=== PATIENT | female | born 1940 | race Caucasian/White ===

== ENCOUNTER 2017-12-07 05:22 | Inpatient (IN) | payer MEDICARE, SELFPAY ==
[2017-12-07] VITALS (10 sets, daily range): BP systolic 44–117; BP diastolic 33–68; PULSE 83–91; RESP 16–20; TEMP 36.3–36.6; O2SAT 92–98; BMI 26.2
--- NOTE | 2017-12-07 | DI.ECHO.S_ITS ---
[place] [facility]---------+ [facility] +---------+ : : [address] : : : : [id number] : : : : Phone: [phone] Echocardiogram Report + + :Name: ALFREDO RG Study Date: 12/07/2017 Height: 62 in : :[facility] Weight: 143 lb : : Gender: Female BSA: 1.7 m2 : :: 1940 Age: 77 yrs BP: 102/68 mmHg: :Reason For Study: Congestive Heart Failure : : Performed By: Fabiola Guzman : :Referring: UNSPECIFIED : + + Interpretation Summary -The LV systolic function is significantly reduced. There is global hypokinesis with focal wall motion abnormality in the LAD territory. There is also hypokinesis in the inferior wall which indicates wither a wrap around LAD or RCA involvement. -The ejection fraction is estimated to be 30-35%. -Diastolic parameters suggest a restrictive filling pattern consistent with probable significantly elevated filling pressures. -There is moderate functional mitral regurgitation, with tethering of the MV leaflets secondary to increased filling pressures. -The interatrial septum bows toward right atrium consistent with elevated left atrial pressure. -The right ventricular systolic pressure is estimated to be at least 51 mmHg based on an estimated right atrial pressure of 8 mm Hg. -Comparison is made with the report of the echocardiogram of 03-03-10. -The drop in EF , WMA and elevated filling pressures are new. Procedure: A two-dimensional transthoracic echocardiogram with color flow and Doppler was performed. The study quality was technically good. Comparison is made with the echocardiogram of 03-03-10. The heart rate ranged between 89- 90 bpm during the study. Left Ventricle: The left ventricle is normal in size. There is normal left ventricular wall thickness. The ejection fraction is estimated to be 30-35%. There is mid anteroseptal wall severe hypokinesis. There is apical septal wall akinesis. There is apical akinesis. There is inferior wall severe hypokinesis. Diastolic parameters suggest a restrictive filling pattern consistent with probable significantly elevated filling pressures. Right Ventricle: The right ventricle is grossly normal size. Right ventricular systolic function is moderately reduced. Atria: The left atrium is severely dilated. Right atrial size is normal. Chiari network (normal variant) is noted. A patent foramen ovale is suspected. The interatrial septum bows toward right atrium consistent with elevated left atrial pressure. Mitral Valve: The mitral valve leaflets appear mildly thickened, but open well. There is moderate mitral regurgitation. Aortic Valve: The aortic valve is trileaflet. The aortic valve opens well. The aortic valve is moderately calcified. There is trace aortic regurgitation. Tricuspid Valve: The tricuspid valve leaflets are thin and pliable. There is moderate tricuspid regurgitation. The right ventricular systolic pressure is estimated to be at least 51 mmHg based on an estimated right atrial pressure of 8 mm Hg. Pulmonic Valve: The pulmonic valve is not well visualized. There is no pulmonic valvular regurgitation. Great Vessels: The aortic root is normal size. The dimensions of the ascending aorta are normal. The aortic arch is normal in size. The IVC is of normal diameter and collapses less than 50% with a sniff. This suggests a right atrial pressure of 8 mm Hg. Pericardium/ Pleura There is no pericardial effusion. There is a small right-sided pleural effusion. MMode/2D Measurements & Calculations LVIDd: 5.1 cm Ao root diam: 2.8 cm LVIDs: 4.1 cm Aortic Jxn: 2.4 cm FS: 21.0 % asc Aorta Diam: 3.1 cm EPSS: 1.9 cm Ao Arch Diam (Prox Trans): 2.6 cm IVSd: 1.00 cm LVPWd: 0.81 cm LV reis. diameter/BSA (cm/m^2): 3.1 LV sys. diameter/BSA (cm/m^2): 2.5 LA dimension: 4.6 cm RA long axis: 4.3 cm LA A2 area: 22.8 cm2 RA area: 12.7 cm2 LA A4 area: 21.9 cm2 RA vol: 32.2 ml LA length (vol): 5.1 cm RA : 19.4 ml/m2 LA vol: 82.2 ml IVC diam: 1.9 cm LA vol index: 49.6 ml/m2 RVDd major: 5.4 cm RVD1 (basal): 3.1 cm RVD2 (mid): 3.2 cm Doppler Measurements & Calculations Ao V2 max: 124.4 cm/sec MV E max eric: 106.7 cm/sec Ao V2 mean: 80.3 cm/sec MV A max eric: 83.8 cm/sec Ao max P.2 mmHg MV E/A: 1.3 Ao mean P.0 mmHg Med Peak E' Eric: 2.2 cm/sec Ao V2 VTI: 23.6 cm E/E' med: 48.3 Lat Peak E' Eric: 8.3 cm/sec E/E' lat: 12.8 E/e' average: 30.5 MV dec time: 0.14 sec MV P1/2t: 41.8 msec MR ERO: 0.23 cm2 TR max eric: 328.4 cm/sec MV V2 mean: 298.8 cm/sec TR max P.1 mmHg MV mean P.2 mmHg PA V2 max: 55.7 cm/sec MV V2 VTI: 130.9 cm PA V2 mean: 34.8 cm/sec PA mean P.58 mmHg PA Accel Time: 0.09 sec MV P1/2t max eric: 107.0 cm/sec MR flow rate: 94.4 cm3/sec MVA(P1/2t): 5.3 cm2 MR PISA radius: 0.63 cm Electronically signed by: Ayaan Robles M.D. on Reading Physician:12/07/2017 02:27 PM
--- NOTE | 2017-12-07 06:56 | PC.NURSE ---
Admitted at 0645 as AxOx3, very pleasany 77F. Currently on 3L NC saturating at 91%. Reports some increased SOB over the past few days and chest tightness that did not radiate anywhere and was worse with walking. There is +3 edema in b/l feet and +2 in b/l legs. She is a diabetic, states being allergic to Metformin (makes her sick) and Lisinopril (makes her cough, takes it sometimes at home). Skin intact with some scabs. Saurabh STOVALL reported they put in a worthy because she was so short of breath walking to bathroom, worthy is patent and clear yellow. Vitals stable.
--- NOTE | 2017-12-07 07:40 | PM.HP.1 ---
History of Present Illness Date Patient Seen: 12/07/17 Time Patient Seen: 07:00 Chief complaint: Acute Heart Failure, Elevated Troponin Narrative: The patient presents as a transfer from [facility] with diagnosis of chest pain. Ms. Fierro is a 77-year-old female with PMH significant for CAD, h/o TX (w/o reported intervention), TIA/CVA, carotid artery disease (previously was urged to be evaluated CEA), HTN, IDDM2T, and peripheral neuropathy. Patient reports prior abnormal stress test, approximately 4-5 years ago by report, which patient notes a 90% stenosis in 1 of her cardiac arteries. For the past 2-3 days patient reports an acute onset dyspnea with associated symptoms of a nonproductive cough, wheezing, chest tightness, and peripheral edema. Symptom onset was acute and progressively worsening in the past 3 days. She has been having some degree of edema over the past couple of weeks. Chest discomfort is characterized as tight across her chest without radiation to the back, extremities, neck or chest. Symptoms are worsened with exertion. No known history of pulmonary anomalies, asthma, or COPD. No prior known history of heart failure. It is worth mentioning that patient was placed on lisinopril 2 weeks ago. She has taken 2-3 doses of the medication after which she developed severe dry cough. At that time patient stopped taking the medication and her cough has resolved. Patient reports prior adverse reaction to lisinopril with similar presentation. She reports having coarseness and cessation of laryngeal spasm. Denies swelling of the tongue, lips, or face. Patient was recently placed on lisinopril due to elevated blood pressure. Patient tells me that she usually runs low and has not been checking her blood pressure and was not clear why the blood pressure is elevated. [facility] work-up reviewed CXR (2 view), remarkable for basilar predominant septal thickening. Pulmonary venous congestion. Streaking and indistinct lipase lower airspace disease. Trace bilateral pleural effusions, left greater than right. Mild enlargement of the cardiac silhouette. Moderate calcific atherosclerosis. Findings suggestive of mild to moderate CHF. Superimposed bibasilar infection difficult to exclude. IVC Sono: IVC 2.01 cm, IVC collapsed w/ inspiration 2.00 cm, high CVP WBC 9.4 HGB 10.6 PLT 275 NA 139 K 4.1 CL 106 CA 8.7 CO2 20 AG 13 GLU 163 BUN 25 sCR 1.0 GFR 54 BILI (total) 0.7 AST 131 ALT 173 ALK PHOS 164 LIPASE 13 ALB 3.3 TROP 0.1 BNP 1274 UA unremarkable for an infection, hematuria or proteinuria Received a DuoNeb treatment and 40 mg of IV Lasix. De Dios catheter was placed. Interventions noted as effective in relief of severity of acute dyspnea. Previously seen by Dr. Candy Cohen (cardiology, in [facility] [place]), which she has not followed up for in 4-5 years. Follows for preventive care w/ Roxanne Guzmán [employer]. Patient History Medical History Coronary artery disease (Chronic) Diabetes mellitus type 2, insulin dependent (Chronic) History of CVA (cerebrovascular accident) without residual deficits (Chronic) History of uric acid staghorn calculus (Chronic) Peripheral neuropathy (Chronic) H/O: hysterectomy (Resolved) Hx of nephrolithotomy with removal of calculi (Resolved) Meds Home Medications Medication Instructions Recorded Confirmed Type acetaminophen [Acetaminophen Extra 1,000 mg PO Q6H PRN 12/07/17 12/07/17 History Strength] cyclobenzaprine 10 mg PO TID PRN 12/07/17 12/07/17 History gabapentin 600 mg PO QPM 12/07/17 12/07/17 History insulin glargine U-300 conc 44 unit SUBCUT DAILY 12/07/17 12/07/17 History [Toujeo SoloStar U-300 Insulin] metoprolol tartrate 25 mg PO BID 12/07/17 12/07/17 History Allergies Allergy/AdvReac Type Severity Reaction Status Date / Time lisinopril Allergy Severe cough Verified 12/07/17 08:03 metformin Allergy Unknown Verified 12/07/17 08:03 Review of Systems Review of Systems All systems reviewed & are unremarkable except as noted in HPI and below Exam Vital Signs (past 8 hours): - 12/07/17 06:40 Temperature 97.6 F Pulse Rate 89 Respiratory Rate 20 Blood Pressure 102/68 Pulse Oximetry 98 Narrative Exam Narrative: General: NAD Head: NC, AT EENT: gaze conjugate, sclera anicteric external ears intact, no drainage, adequate hearing acuity external nose intact, no drainage or epistaxis oropharynx w/o exudated; no angioedema of lips, tongue, or face Neck: No JVD, no lymphadenopathy Chest: Symmetric chest rise, no palpable tenderness Resp: unlabored respiratory effort, no dyspnea / tachypnea, on 2L O2 Breath sounds Cardio: S1S2 GI: Rounded / central obesity, NT, ND, normoactive BS : De Dios catheter present, no CVA tenderness Skin: Pale overall appearance, no overt bruising, ulcers or lesions Extremities: BLE edema 2+, pitting Neuro: AOx3, no focal neurological deficits PsycH: Normal mood and affect, poor remote memory recall Objective Labs Result Diagrams: 12/07/17 07:40 12/07/17 07:40 Assessment & Plan Plan: Assessment/Plan Narrative: Congestive heart failure - echo - IV Lasix 40 mg BID - Trend e-lytes and renal fx; CBC / BMP / Mg - Daily weight, strict I/Os - FR 1.5L / per day Elevated Troponin Trop 0.1 per outside facility. EKG non-ischemic. H/O of CAD w/ prior TX. At time of evaluation chest pain-free. Denies additional s/s consistent w/ ACS. - Trend troponin CAD, w/ prior TX - reports taking ASA 325 gm BID, will need to verify this dose w/ prior records - resume ASA 325 mg QD - on BB , BP soft - will re-evaluate / consider resuing tomorrow - not on a statin, reports worsening neuropathic pain - Risk stratify: A1C and FLP - Request records from cornetist DM 2T, insulin dependent - AC/HS accu-checks - Resume home dose of insulin glargine ACEi induced adverse reaction At this time it is not clear if initiation of an MARLYN inhibitor has contributed to the respiratory distress / heart failure. CBC differential is unremarkable for eosinophilic and basophil abnormalities. Likely a sequela of underlying comorbidities/cardiac history - Place ACEi on patient's allergy list
--- NOTE | 2017-12-07 08:22 | P.HP_ITS ---
History of Present Illness Date Patient Seen: 12/07/17 Time Patient Seen: 07:00 Chief complaint: Acute Heart Failure, Elevated Troponin Narrative: The patient presents as a transfer from [facility] with diagnosis of chest pain. Ms. Fierro is a 77-year-old female with PMH significant for CAD, h/o OK (w/o reported intervention), TIA/CVA, carotid artery disease (previously was urged to be evaluated CEA), HTN, IDDM2T, and peripheral neuropathy. Patient reports prior abnormal stress test, approximately 4-5 years ago by report, which patient notes a 90% stenosis in 1 of her cardiac arteries. For the past 2-3 days patient reports an acute onset dyspnea with associated symptoms of a nonproductive cough, wheezing, chest tightness, and peripheral edema. Symptom onset was acute and progressively worsening in the past 3 days. She has been having some degree of edema over the past couple of weeks. Chest discomfort is characterized as tight across her chest without radiation to the back, extremities, neck or chest. Symptoms are worsened with exertion. No known history of pulmonary anomalies, asthma, or COPD. No prior known history of heart failure. It is worth mentioning that patient was placed on lisinopril 2 weeks ago. She has taken 2-3 doses of the medication after which she developed severe dry cough. At that time patient stopped taking the medication and her cough has resolved. Patient reports prior adverse reaction to lisinopril with similar presentation. She reports having coarseness and cessation of laryngeal spasm. Denies swelling of the tongue, lips, or face. Patient was recently placed on lisinopril due to elevated blood pressure. Patient tells me that she usually runs low and has not been checking her blood pressure and was not clear why the blood pressure is elevated. [facility] work-up reviewed CXR (2 view), remarkable for basilar predominant septal thickening. Pulmonary venous congestion. Streaking and indistinct lipase lower airspace disease. Trace bilateral pleural effusions, left greater than right. Mild enlargement of the cardiac silhouette. Moderate calcific atherosclerosis. Findings suggestive of mild to moderate CHF. Superimposed bibasilar infection difficult to exclude. IVC Sono: IVC 2.01 cm, IVC collapsed w/ inspiration 2.00 cm, high CVP WBC 9.4 HGB 10.6 PLT 275 NA 139 K 4.1 CL 106 CA 8.7 CO2 20 AG 13 GLU 163 BUN 25 sCR 1.0 GFR 54 BILI (total) 0.7 AST 131 ALT 173 ALK PHOS 164 LIPASE 13 ALB 3.3 TROP 0.1 BNP 1274 UA unremarkable for an infection, hematuria or proteinuria Received a DuoNeb treatment and 40 mg of IV Lasix. De Dios catheter was placed. Interventions noted as effective in relief of severity of acute dyspnea. Previously seen by Dr. Candy Cohen (cardiology, in [facility]), which she has not followed up for in 4-5 years. Follows for preventive care w/ Roxanne Guzmná [employer]ATE. Patient History Medical History Coronary artery disease (Chronic) Diabetes mellitus type 2, insulin dependent (Chronic) History of CVA (cerebrovascular accident) without residual deficits (Chronic) History of uric acid staghorn calculus (Chronic) Peripheral neuropathy (Chronic) H/O: hysterectomy (Resolved) Hx of nephrolithotomy with removal of calculi (Resolved) Meds Home Medications Medication Instructions Recorded Confirmed Type acetaminophen [Acetaminophen Extra 1,000 mg PO Q6H PRN 12/07/17 12/07/17 History Strength] cyclobenzaprine 10 mg PO TID PRN 12/07/17 12/07/17 History gabapentin 600 mg PO QPM 12/07/17 12/07/17 History insulin glargine U-300 conc 44 unit SUBCUT DAILY 12/07/17 12/07/17 History [Toujeo SoloStar U-300 Insulin] metoprolol tartrate 25 mg PO BID 12/07/17 12/07/17 History Allergies Allergy/AdvReac Type Severity Reaction Status Date / Time lisinopril Allergy Severe cough Verified 12/07/17 08:03 metformin Allergy Unknown Verified 12/07/17 08:03 Review of Systems Review of Systems All systems reviewed & are unremarkable except as noted in HPI and below Exam Vital Signs (past 8 hours): - 12/07/17 06:40 Temperature 97.6 F Pulse Rate 89 Respiratory Rate 20 Blood Pressure 102/68 Pulse Oximetry 98 Narrative Exam Narrative: General: NAD Head: NC, AT EENT: gaze conjugate, sclera anicteric external ears intact, no drainage, adequate hearing acuity external nose intact, no drainage or epistaxis oropharynx w/o exudated; no angioedema of lips, tongue, or face Neck: No JVD, no lymphadenopathy Chest: Symmetric chest rise, no palpable tenderness Resp: unlabored respiratory effort, no dyspnea / tachypnea, on 2L O2 Breath sounds Cardio: S1S2 GI: Rounded / central obesity, NT, ND, normoactive BS : De Dios catheter present, no CVA tenderness Skin: Pale overall appearance, no overt bruising, ulcers or lesions Extremities: BLE edema 2+, pitting Neuro: AOx3, no focal neurological deficits PsycH: Normal mood and affect, poor remote memory recall Objective Labs Result Diagrams: 12/07/17 07:40 12/07/17 07:40 Assessment & Plan Plan: Assessment/Plan Narrative: Congestive heart failure - echo - IV Lasix 40 mg BID - Trend e-lytes and renal fx; CBC / BMP / Mg - Daily weight, strict I/Os - FR 1.5L / per day Elevated Troponin Trop 0.1 per outside facility. EKG non-ischemic. H/O of CAD w/ prior OK. At time of evaluation chest pain-free. Denies additional s/s consistent w/ ACS. - Trend troponin CAD, w/ prior OK - reports taking ASA 325 gm BID, will need to verify this dose w/ prior records - resume ASA 325 mg QD - on BB , BP soft - will re-evaluate / consider resuing tomorrow - not on a statin, reports worsening neuropathic pain - Risk stratify: A1C and FLP - Request records from card stripper DM 2T, insulin dependent - AC/HS accu-checks - Resume home dose of insulin glargine ACEi induced adverse reaction At this time it is not clear if initiation of an MARLYN inhibitor has contributed to the respiratory distress / heart failure. CBC differential is unremarkable for eosinophilic and basophil abnormalities. Likely a sequela of underlying comorbidities/cardiac history - Place ACEi on patient's allergy list
--- NOTE | 2017-12-07 09:31 | CM.DANOTE ---
Addendum entered by Felicitas Yost LPN 12/07/17 14:21: Met as noted this morning with pt, 0830. Introduced self and role. Pt is a 77year old female who admitted to care of hospitalist team. She lives in [place], was taken to [facility] ER, it was determined, she states, that she needed a larger hospital and thus was sent to . She says she was told by [facility] that from she might have to go on to a larger hospital that offers cardiology care. Payer: Medicare and [employer]. PCP: Olimpia Ayers/per face sheet. Pt identifies one of her greatest concerns at this point is how she will get home at d/c. She says she has no one who can pick her up and she was told the hospital will figure that out. Pt is also concerned re the worthy catheter that has been placed, noting it is not comfortable/RN Shona is aware. Dr. London will be following pt today. P: agreed to check in again as POC unfolds and assist with d/c needs as these arise. Original Note: Discharge Planning/Care Management DCP: assessment: case received, EMR reviewed and met with pt. CM Discharge Assessment Start: 12/07/17 09:29 Freq: Status: Active Protocol: Document 12/07/17 09:30 ITV (Rec: 12/07/17 09:30 ITV [id number]) Discharge Planning Assessment History Provided By Patient Medical Record Prior Living Arrangements House Type of transporation used prior to Drives own vehicle admit Independent with ADL's Yes Is patient alert and oriented? Yes Whiteboard Updated in Patient Room with Yes name and ext. # of Outbound Supervisor Review Status In Process Next Review Type Continued Stay Review
[2017-12-07 09:40] LABS: Add Manual Diff / Slide Review NO; Basophils Percent Auto 0.7 % (0-2); Eosinophils Percent Auto 1.2 % (2-4); Hematocrit 32.7 % (36-46); Hemoglobin 10.7 g/dL (12.0-16.0); Lymphocytes Percent Auto 19.1 % (25-40); Mean Corpuscular HGB Conc 32.8 % (30-36); Mean Corpuscular Volume 85.3 fL (80-100); Monocytes Percent Auto 8.1 % (3-14); Neutrophils Absolute Auto 4800 /uL (3000-5900); Neutrophils Percent Auto 70.9 % (50-75); Platelet Count 293 X10^3/uL (150-400); Red Blood Cell Count 3.83 X10^6/uL (4.0-5.2); Red Cell Distribution Width 15.8 % (11.6-14.8); White Blood Cell Count 6.8 X10^3/uL (4.5-11.0)
[2017-12-07 09:52] LABS: Alanine Aminotransferase 194 IU/L (9-52); Albumin Globulin Ratio 1.3 (1.0-2.8); Alkaline Phosphatase 143 U/L (38-126); Aspartate Aminotransferase 119 IU/L (14-36); BUN Creatinine Ratio 26.7 (6-22); Bilirubin Total 0.6 mg/dL (0.2-1.3); Blood Urea Nitrogen 24 mg/dL (7-17); Calcium 9.3 mg/dL (8.4-10.2); Carbon Dioxide 27 mmol/L (22-32); Chloride 104 mmol/L (98-107); Estimated Glomerular Filt Rate > 60.0 mL/min (>60); Glucose 71 mg/dL (80-110); HEMOLYSIS < 15 (0-50); Magnesium 1.4 mg/dL (1.6-2.3); Potassium 3.5 mmol/L (3.4-5.1); Sodium 147 mmol/L (137-145)
[2017-12-07] MEDS: HEPARIN 5,000 UNIT/ML VIAL 5000 UNIT SUBCUT ×2 (11:19→21:03)
[2017-12-07] MEDS: FUROSEMIDE 40 MG/4 ML VIAL IV (11:19)
[2017-12-07] MEDS: ASPIRIN 325 MG TABLET PO (11:19)
[2017-12-07] MEDS: ACETAMINOPHEN 325 MG TABLET 975 MG PO (11:20)
[2017-12-07 15:26] LABS: Troponin I 0.104 ng/mL (0.01-0.034)
--- NOTE | 2017-12-07 15:33 | PC.NURSE ---
day shift noted that pt was supposed to be on tele. Called ICU and no tele boxes available to use, all in use. Pt received ECHO with evidence of decreased heart funtion. Pt reports chest pain and SOB with activity and when O2 was off to provide care, pt stated she felt chest pain again. Notified MD of issues, she is aware.
[2017-12-07] MEDS: GABAPENTIN 600 MG TABLET PO (17:13)
[2017-12-07] MEDS: CYCLOBENZAPRINE 10 MG TABLET PO (17:24)
[2017-12-07] MEDS: SODIUM CHLORIDE 0.9% 500 ML 1000 ML IV (19:23)
[2017-12-07 20:52] LABS: Troponin I 0.084 ng/mL (0.01-0.034)
[2017-12-08] VITALS (16 sets, daily range): BP systolic 89–154; BP diastolic 50–86; PULSE 88–109; RESP 17–20; TEMP 36.4–37.5; O2SAT 89–99
--- NOTE | 2017-12-08 00:08 | PC.NURSE ---
evening sh9ift note- patient frequently requested home medications. Hospitalist on duty notified of patients home medications and that patient reported feeling like Im withdrawling from not getting what i normally take.
[2017-12-08] MEDS: QUETIAPINE 25 MG TABLET 50 MG PO ×2 (00:12→20:26)
--- NOTE | 2017-12-08 03:10 | PC.NURSE ---
Addendum entered by Marla Connors R.N. 12/08/17 03:24: Spoke to Provider Danielle about 02 sats and she instructed to place patient on 2L NC. Now satting at 95% Original Note: Pt is AxOx3, VSS. Tolerating RA at 97% while awake. Currently at 89% while sleeping and maintaining. I am going to leave her on RA to see if she winds up desatting more during the night or if she can maintain this O2 status since she is normally not on any O2 at home. Edema in b/l feet is much improved since admission. Was about +3 and is now +1 non-pitting. Seroquel given for sleep. 1.5L fluid restriction. Legs elevated. De Dios patent and draining clear yellow urine. Cough that is non-productive. IS use encouraged and patient compliant with it.
--- NOTE | 2017-12-08 06:00 | DI.RAD.S_ITS ---
PROCEDURE: XR CHEST 1V INDICATIONS: Congestive heart failure, dyspnea TECHNIQUE: One view of the chest was acquired. COMPARISON: [facility], RG, XR CXR 2V, 12/07/2017, 3:08. FINDINGS: Surgical changes and devices: None. Diffuse scarring and interstitial changes. No definite new focal consolidation. Scattered atelectasis with increased hazy groundglass opacities since earlier same day. Cardiac silhouette is enlarged Chronic right rib fractures with callus formation as before IMPRESSION: Increased hazy diffuse groundglass opacities suggestive of early pulmonary edema although suboptimal evaluation given the background chronic interstitial change. Recommend continued radiographic followup. Please correlate clinically to exclude superimposed infection Enlarged cardiac silhouette suggesting cardiomegaly and raises the possibility of superimposed pericardial effusion. Please correlate clinically Dictated by: Arnulfo Palomares M.D. on 12/08/2017 at 9:20 Approved by: Arnulfo Palomares M.D. on 12/08/2017 at 9:24
[2017-12-08] MEDS: HEPARIN 5,000 UNIT/ML VIAL 5000 UNIT SUBCUT ×2 (09:18→20:26)
[2017-12-08] MEDS: GABAPENTIN 600 MG TABLET PO ×2 (09:18→20:26)
[2017-12-08] MEDS: ASPIRIN 325 MG TABLET PO (09:18)
[2017-12-08] MEDS: INSULIN GLARGINE 100 UNIT/ML 3ML PEN 44 UNIT SUBCUT (09:22)
--- NOTE | 2017-12-08 16:05 | PM.PN.1 ---
Subjective Date Patient Seen: 12/08/17 Interval history: Overall she feels her breathing has improved significantly. She is worried about the reduction in her ejection fraction She feels constipated and would like to have prune juice with meals Exam Vital Signs (past 8 hours): - 12/08/17 08:15 12/08/17 08:40 12/08/17 08:56 Temperature 98.4 F Pulse Rate 88 Respiratory Rate 18 Blood Pressure 111/61 Pulse Oximetry 97 97 94 12/08/17 12:00 12/08/17 16:00 Temperature 98.4 F 97.5 F L Pulse Rate 91 H Respiratory Rate 19 20 Blood Pressure 103/65 89/54 L Pulse Oximetry 92 91 Fraction of Inspired Oxygen 21 Oxygen Delivery Method Room Air Oxygen Flow Rate 0 Narrative Exam Narrative: Pleasant female in no acute distress LUngs: decreased breath sounds CV: RRR nl Sl S2 2/6 BRIDGET Abd: soft/ non tender/non distended Ext: 1+ edema Objective Labs Result Diagrams: 12/07/17 07:40 12/07/17 07:40 Labs: Laboratory Results - last 24 hr 12/07/17 20:19 Troponin I 0.084 H Assessment & Plan (1) Acute systolic heart failure: Problem details: As she has not tolerated MARLYN-I , will start hydralazine/isordil for afterload reduction. Will continue IV Lasix tonight, stop metoprolol and start low dose coreg. Once done with diuresis start isordil. Will discuss with Cardiology and patient may benefit for Coronary angio gram Current visit: Yes Status: Acute (2) Hypernatremia: Problem details: will continue to follow Current visit: Yes Status: Acute Quality VTE Deep Vein Thrombosis/Pulmonary Embolism Present on Admission: No
[2017-12-08] MEDS: CYCLOBENZAPRINE 10 MG TABLET PO (20:25)
[2017-12-08] MEDS: CARVEDILOL 3.125 MG TABLET PO (20:26)
[2017-12-08] MEDS: HYDRALAZINE 10 MG TABLET PO (22:21)
[2017-12-08] MEDS: ACETAMINOPHEN 325 MG TABLET 650 MG PO (23:54)
[2017-12-09] VITALS (12 sets, daily range): BP systolic 90–120; BP diastolic 49–72; PULSE 76–94; RESP 16–20; TEMP 36.3–37.1; O2SAT 92–97
[2017-12-09] MEDS: TEMAZEPAM 15 MG CAPSULE PO (02:07)
--- NOTE | 2017-12-09 02:10 | PC.NURSE ---
Pt. C/O insomnia, requested sleeping pill. KELLEN Santos notified, one time dose 15 mg. admin. Also given some chamomile tea & encouraged to get some sleep. Will cont. POC & monitor.
[2017-12-09 05:48] LABS: BUN Creatinine Ratio 46.3 (6-22); Blood Urea Nitrogen 37 mg/dL (7-17); Calcium 8.9 mg/dL (8.4-10.2); Carbon Dioxide 26 mmol/L (22-32); Chloride 108 mmol/L (98-107); Estimated Glomerular Filt Rate > 60.0 mL/min (>60); Glucose 107 mg/dL (80-110); HEMOLYSIS < 15 (0-50); Potassium 3.8 mmol/L (3.4-5.1); Sodium 142 mmol/L (137-145)
[2017-12-09] MEDS: ASPIRIN 325 MG TABLET PO (11:22)
[2017-12-09] MEDS: HEPARIN 5,000 UNIT/ML VIAL 5000 UNIT SUBCUT ×2 (11:23→20:37)
[2017-12-09] MEDS: FUROSEMIDE 20 MG/2 ML VIAL IV (11:27)
--- NOTE | 2017-12-09 11:31 | PM.PN.1 ---
Subjective Date Patient Seen: 12/09/17 Time Patient Seen: 11:32 Interval history: She says she is breathing much better. Her asset protection greeter is Dr. Cohen who she thinks she saw 3 years ago. The Lisinopril was started by her PCP - Kizzy Stearns. The Echo shows a 30-35% EF. Clearly the Lasix, Carvedilol, Hydralazine and Aldactone have been effective. She has no chest pain or edema. The Troponin reached 0.12 on 12/07. I don't see a BNP. Exam Vital Signs (past 8 hours): - 12/09/17 05:40 12/09/17 05:41 12/09/17 07:00 Temperature 97.3 F L Pulse Rate 80 80 Respiratory Rate 18 Blood Pressure 90/55 L 90/55 L Pulse Oximetry 96 95 12/09/17 08:00 Temperature 97.5 F L Pulse Rate 76 Respiratory Rate 18 Blood Pressure 105/49 L Pulse Oximetry 92 Fraction of Inspired Oxygen 21 Oxygen Delivery Method Room Air Oxygen Flow Rate 0 Const General: cooperative Nutritional Appearance: well nourished Orientation: alert and oriented x3 Resp Effort & Inspection: no respiratory distress Auscultation: clear to auscultation bilaterally and lung sounds not diminished Cardio Rate: regular rate Rhythm: regular rhythm Heart Sounds: no murmurs Skin General: no rashes or lesions noted Extrem General: No no pedal edema Objective Labs Result Diagrams: 12/07/17 07:40 12/09/17 05:22 Labs: Laboratory Results - last 24 hr 12/09/17 05:22 Sodium 142 Potassium 3.8 Chloride 108 H Carbon Dioxide 26 BUN 37 H Creatinine 0.80 Estimated GFR > 60.0 BUN/Creatinine Ratio 46.3 H Glucose 107 Calcium 8.9 Assessment & Plan Plan: Assessment/Plan Narrative: 1 - Acute CHF/Rule out ACS Her EKG is LBBB A repeat Troponin and BNP are ordered stat. Due to the weekend she will likely not be able to do a NM Lexiscan. As she has not tolerated MARLYN-I , she was started on Spironolactone/isordil for afterload reduction. Will continue IV Lasix and low dose coreg. Once done with diuresis start isordil. Will discuss with Cardiology and patient may need a Coronary angiogram. Slim left with Dr. Cohen, who is her asset protection greeter. 2 - Diabetes Mellitus 2 - Continue Lantus - following blood sugars 3 - Hypernatremia - Na of 147 on 12/07, now down to 142. Quality VTE Deep Vein Thrombosis/Pulmonary Embolism Present on Admission: No
[2017-12-09] MEDS: GABAPENTIN 600 MG TABLET PO ×2 (11:36→20:40)
[2017-12-09] MEDS: INSULIN GLARGINE 100 UNIT/ML 3ML PEN 44 UNIT SUBCUT (11:37)
--- NOTE | 2017-12-09 11:37 | P.PN_ITS ---
Subjective Date Patient Seen: 12/09/17 Time Patient Seen: 11:32 Interval history: She says she is breathing much better. Her railroad track mechanic is Dr. Cohen who she thinks she saw 3 years ago. The Lisinopril was started by her PCP - Kizzy Stearns. The Echo shows a 30-35% EF. Clearly the Lasix, Carvedilol, Hydralazine and Aldactone have been effective. She has no chest pain or edema. The Troponin reached 0.12 on 12/07. I don't see a BNP. Exam Vital Signs (past 8 hours): - 12/09/17 05:40 12/09/17 05:41 12/09/17 07:00 Temperature 97.3 F L Pulse Rate 80 80 Respiratory Rate 18 Blood Pressure 90/55 L 90/55 L Pulse Oximetry 96 95 12/09/17 08:00 Temperature 97.5 F L Pulse Rate 76 Respiratory Rate 18 Blood Pressure 105/49 L Pulse Oximetry 92 Fraction of Inspired Oxygen 21 Oxygen Delivery Method Room Air Oxygen Flow Rate 0 Const General: cooperative Nutritional Appearance: well nourished Orientation: alert and oriented x3 Resp Effort & Inspection: no respiratory distress Auscultation: clear to auscultation bilaterally and lung sounds not diminished Cardio Rate: regular rate Rhythm: regular rhythm Heart Sounds: no murmurs Skin General: no rashes or lesions noted Extrem General: No no pedal edema Objective Labs Result Diagrams: 12/07/17 07:40 12/09/17 05:22 Labs: Laboratory Results - last 24 hr 12/09/17 05:22 Sodium 142 Potassium 3.8 Chloride 108 H Carbon Dioxide 26 BUN 37 H Creatinine 0.80 Estimated GFR > 60.0 BUN/Creatinine Ratio 46.3 H Glucose 107 Calcium 8.9 Assessment & Plan Plan: Assessment/Plan Narrative: 1 - Acute CHF/Rule out ACS Her EKG is LBBB A repeat Troponin and BNP are ordered stat. Due to the weekend she will likely not be able to do a NM Lexiscan. As she has not tolerated MARLYN-I , she was started on Spironolactone/isordil for afterload reduction. Will continue IV Lasix and low dose coreg. Once done with diuresis start isordil. Will discuss with Cardiology and patient may need a Coronary angiogram. Slim left with Dr. Cohen, who is her railroad track mechanic. 2 - Diabetes Mellitus 2 - Continue Lantus - following blood sugars 3 - Hypernatremia - Na of 147 on 12/07, now down to 142. Quality VTE Deep Vein Thrombosis/Pulmonary Embolism Present on Admission: No
[2017-12-09] MEDS: CYCLOBENZAPRINE 10 MG TABLET PO (11:42)
[2017-12-09] MEDS: SODIUM CHLORIDE 0.9% FLUSH 10 ML IV ×2 (11:43→20:47)
[2017-12-09 12:41] LABS: Troponin I 0.062 ng/mL (0.01-0.034)
--- NOTE | 2017-12-09 14:55 | PM.DS.1 ---
History of Present Illness Date Patient Seen: 12/09/17 Time Patient Seen: 14:55 Chief complaint: Acute Heart Failure, Elevated Troponin Narrative: I reviewed her initially elevated troponins, now falling, thought to be secondary to congestive heart failure with a Dr. Cohen, who is her speech language specialist. We talked about her ejection fraction of 30-35%, her EKG with left bundle branch block in her general improvement with diuresis and the addition of spironolactone/hydralazine/carvedilol to her regimen. She will be going home on the additional medicines, with the goal of medical management until she sees her speech language specialist next week for further testing possible. This was explained to the patient. Social service working on getting her some transportation home. Her catheter will be removed and physical therapy will make sure that she is able to walk and transfer out of the car when she gets home. Per the initial hospital history and physical .The patient presents as a transfer from [facility] with diagnosis of chest pain. Ms. Fierro is a 77-year-old female with PMH significant for CAD, h/o ND (w/o reported intervention), TIA/CVA, carotid artery disease (previously was urged to be evaluated CEA), HTN, IDDM2T, and peripheral neuropathy. Patient reports prior abnormal stress test, approximately 4-5 years ago by report, which patient notes a 90% stenosis in 1 of her cardiac arteries. For the past 2-3 days patient reports an acute onset dyspnea with associated symptoms of a nonproductive cough, wheezing, chest tightness, and peripheral edema. Symptom onset was acute and progressively worsening in the past 3 days. She has been having some degree of edema over the past couple of weeks. Chest discomfort is characterized as tight across her chest without radiation to the back, extremities, neck or chest. Symptoms are worsened with exertion. No known history of pulmonary anomalies, asthma, or COPD. No prior known history of heart failure. It is worth mentioning that patient was placed on lisinopril 2 weeks ago. She has taken 2-3 doses of the medication after which she developed severe dry cough. At that time patient stopped taking the medication and her cough has resolved. Patient reports prior adverse reaction to lisinopril with similar presentation. She reports having coarseness and cessation of laryngeal spasm. Denies swelling of the tongue, lips, or face. Patient was recently placed on lisinopril due to elevated blood pressure. Patient tells me that she usually runs low and has not been checking her blood pressure and was not clear why the blood pressure is elevated. [facility] work-up reviewed CXR (2 view), remarkable for basilar predominant septal thickening. Pulmonary venous congestion. Streaking and indistinct lipase lower airspace disease. Trace bilateral pleural effusions, left greater than right. Mild enlargement of the cardiac silhouette. Moderate calcific atherosclerosis. Findings suggestive of mild to moderate CHF. Superimposed bibasilar infection difficult to exclude. IVC Sono: IVC 2.01 cm, IVC collapsed w/ inspiration 2.00 cm, high CVP WBC 9.4 HGB 10.6 PLT 275 NA 139 K 4.1 CL 106 CA 8.7 CO2 20 AG 13 GLU 163 BUN 25 sCR 1.0 GFR 54 BILI (total) 0.7 AST 131 ALT 173 ALK PHOS 164 LIPASE 13 ALB 3.3 TROP 0.1 BNP 1274 UA unremarkable for an infection, hematuria or proteinuria Received a DuoNeb treatment and 40 mg of IV Lasix. De Dios catheter was placed. Interventions noted as effective in relief of severity of acute dyspnea. Previously seen by Dr. Candy Cohen (cardiology, in [facility]), which she has not followed up for in 4-5 years. Follows for preventive care w/ Roxanne Guzmán TEST ADMINISTRATOR. Discharge Providers Date of admission: 12/07/17 05:22 Primary care physician: KELLEN Nguyen Consults: 12/09/17 14:52 Consult to Physical Therapy Evaluate & Treat Comment: For discharge safety Physician Instructions: Evaluate and Treat Discharge provider: Neil Robbins MD Discharge Date: 12/09/17 Summary Discharge Diagnosis: Congestive heart failure Elevated troponin of demand ischemia without myocardial infarction Coronary artery disease Diabetes mellitus type 2 History of CVA without residual deficits History of staghorn uric acid calculus Peripheral neuropathy Hospital Course: She came in quite dyspneic, with chest x-ray evidence of CHF and responded to IV Lasix. She had previously been intolerant of angiotensin-converting enzyme inhibitors with a persisting cough. She was changed from metoprolol to carvedilol, spironolactone was added, hydralazine was added. Echocardiogram showed 30-35% ejection fraction with most recent echo being in 2010 with normal ejection fraction. Her EKG showed left bundle branch block. She had no chest pain while here, her troponins were initially elevated at 0.12 and then back down to 0.62 today along with a BNP of 784. Status at Discharge Functional status at discharge: independent ambulation Overall status at discharge: patient is progressing back to baseline Time Spent with Patient Greater than 30 minutes Exam Vital Signs (past 8 hours): - 12/09/17 07:00 12/09/17 08:00 12/09/17 11:30 Temperature 97.5 F L 97.9 F Pulse Rate 76 87 Respiratory Rate 18 16 Blood Pressure 105/49 L 111/69 Pulse Oximetry 95 92 97 12/09/17 13:43 Temperature Pulse Rate 89 Respiratory Rate Blood Pressure 101/59 L Pulse Oximetry Fraction of Inspired Oxygen 21 Oxygen Delivery Method Room Air Oxygen Flow Rate 0 Narrative Exam Narrative: I saw her several times today. Her lungs are clear to auscultation bilaterally. Her heart is regular rate and rhythm without murmur. She has no ankle edema. Objective Labs Result Diagrams: 12/07/17 07:40 12/09/17 05:22 Labs: Laboratory Results - last 24 hr 12/09/17 12/09/17 12/09/17 05:22 12:04 12:04 Sodium 142 Potassium 3.8 Chloride 108 H Carbon Dioxide 26 BUN 37 H Creatinine 0.80 Estimated GFR > 60.0 BUN/Creatinine Ratio 46.3 H Glucose 107 Calcium 8.9 Troponin I 0.062 H B-Natriuretic Peptide 784.0 H Discharge Plan Discharge Plan Patient Disposition: Home Discharge comment: After discussion with cardiology she is cleared for discharge home on medical treatment until she sees Dr. Cohen next week and has further testing for the CHF/Elevated Troponin. Discharge Med Rec/Prescriptions Prescriptions: New hydralazine 10 mg Tablet 10 mg PO Q8HR Qty: 90 RF: 0 aspirin 325 mg Tablet 325 mg PO DAILY Qty: 30 RF: 0 spironolactone 25 mg Tablet 25 mg PO DAILY Qty: 30 RF: 0 carvedilol [Coreg] 3.125 mg Tablet 3.125 mg PO BID Qty: 60 RF: 0 furosemide [Lasix] 40 mg tablet 40 mg PO DAILY Qty: 30 RF: 0 Continue gabapentin 800 mg Tablet 600 mg PO QPM RF: 0 cyclobenzaprine 10 mg Tablet 10 mg PO TID PRN (Reason: Spasms) RF: 0 acetaminophen [Acetaminophen Extra Strength] 500 mg Tablet 1,000 mg PO Q6H PRN (Reason: Pain (Scale Score 1-3)) RF: 0 insulin glargine U-300 conc [Toujeo SoloStar U-300 Insulin] 300 unit/mL (1.5 mL) Insulin Pen 44 unit SUBCUT DAILY RF: 0 Discontinued metoprolol tartrate 25 mg Tablet 25 mg PO BID RF: 0 Follow up/Referrals: Candy Cohen MD [Non-Staff] - 3-5 Days (BAILEE next week. ) Roxanne Guzmán ARNP [Primary Care Provider] - None (Follow up in 1-2 weeks. ) Provider Discharge Instructions Diet: Low-cholesterol Activity: Rest at home until cardiology sees her. Skin/Wound/Dressing Care Report to your healthcare provider any signs of infection, such as:: increased pain Discharge Data Primary Care Provider: Roxanne Guzmán Attending Provider: Michael Santos Admit Date/Time: 12/07/17 05:22 Quality VTE Deep Vein Thrombosis/Pulmonary Embolism Present on Admission: No
--- NOTE | 2017-12-09 15:04 | P.DS_ITS ---
History of Present Illness Date Patient Seen: 12/09/17 Time Patient Seen: 14:55 Chief complaint: Acute Heart Failure, Elevated Troponin Narrative: I reviewed her initially elevated troponins, now falling, thought to be secondary to congestive heart failure with a Dr. Cohen, who is her public housing manager. We talked about her ejection fraction of 30-35%, her EKG with left bundle branch block in her general improvement with diuresis and the addition of spironolactone/hydralazine/carvedilol to her regimen. She will be going home on the additional medicines, with the goal of medical management until she sees her public housing manager next week for further testing possible. This was explained to the patient. Social service working on getting her some transportation home. Her catheter will be removed and physical therapy will make sure that she is able to walk and transfer out of the car when she gets home. Per the initial hospital history and physical .The patient presents as a transfer from [facility] with diagnosis of chest pain. Ms. Fierro is a 77-year-old female with PMH significant for CAD, h/o [place] (w/o reported intervention), TIA/CVA, carotid artery disease (previously was urged to be evaluated CEA), HTN, IDDM2T, and peripheral neuropathy. Patient reports prior abnormal stress test, approximately 4-5 years ago by report, which patient notes a 90% stenosis in 1 of her cardiac arteries. For the past 2-3 days patient reports an acute onset dyspnea with associated symptoms of a nonproductive cough, wheezing, chest tightness, and peripheral edema. Symptom onset was acute and progressively worsening in the past 3 days. She has been having some degree of edema over the past couple of weeks. Chest discomfort is characterized as tight across her chest without radiation to the back, extremities, neck or chest. Symptoms are worsened with exertion. No known history of pulmonary anomalies, asthma, or COPD. No prior known history of heart failure. It is worth mentioning that patient was placed on lisinopril 2 weeks ago. She has taken 2-3 doses of the medication after which she developed severe dry cough. At that time patient stopped taking the medication and her cough has resolved. Patient reports prior adverse reaction to lisinopril with similar presentation. She reports having coarseness and cessation of laryngeal spasm. Denies swelling of the tongue, lips, or face. Patient was recently placed on lisinopril due to elevated blood pressure. Patient tells me that she usually runs low and has not been checking her blood pressure and was not clear why the blood pressure is elevated. [facility] work-up reviewed CXR (2 view), remarkable for basilar predominant septal thickening. Pulmonary venous congestion. Streaking and indistinct lipase lower airspace disease. Trace bilateral pleural effusions, left greater than right. Mild enlargement of the cardiac silhouette. Moderate calcific atherosclerosis. Findings suggestive of mild to moderate CHF. Superimposed bibasilar infection difficult to exclude. IVC Sono: IVC 2.01 cm, IVC collapsed w/ inspiration 2.00 cm, high CVP WBC 9.4 HGB 10.6 PLT 275 NA 139 K 4.1 CL 106 CA 8.7 CO2 20 AG 13 GLU 163 BUN 25 sCR 1.0 GFR 54 BILI (total) 0.7 AST 131 ALT 173 ALK PHOS 164 LIPASE 13 ALB 3.3 TROP 0.1 BNP 1274 UA unremarkable for an infection, hematuria or proteinuria Received a DuoNeb treatment and 40 mg of IV Lasix. De Dios catheter was placed. Interventions noted as effective in relief of severity of acute dyspnea. Previously seen by Dr. Candy Cohen (cardiology, in [facility]), which she has not followed up for in 4-5 years. Follows for preventive care w/ Roxanne Guzmán STREET PHOTOGRAPHER. Discharge Providers Date of admission: 12/07/17 05:22 Primary care physician: KELLEN Nguyen Consults: 12/09/17 14:52 Consult to Physical Therapy Evaluate & Treat Comment: For discharge safety Physician Instructions: Evaluate and Treat Discharge provider: Neil Robbins MD Discharge Date: 12/09/17 Summary Discharge Diagnosis: Congestive heart failure Elevated troponin of demand ischemia without myocardial infarction Coronary artery disease Diabetes mellitus type 2 History of CVA without residual deficits History of staghorn uric acid calculus Peripheral neuropathy Hospital Course: She came in quite dyspneic, with chest x-ray evidence of CHF and responded to IV Lasix. She had previously been intolerant of angiotensin- converting enzyme inhibitors with a persisting cough. She was changed from metoprolol to carvedilol, spironolactone was added, hydralazine was added. Echocardiogram showed 30-35% ejection fraction with most recent echo being in 2010 with normal ejection fraction. Her EKG showed left bundle branch block. She had no chest pain while here, her troponins were initially elevated at 0.12 and then back down to 0.62 today along with a BNP of 784. Status at Discharge Functional status at discharge: independent ambulation Overall status at discharge: patient is progressing back to baseline Time Spent with Patient Greater than 30 minutes Exam Vital Signs (past 8 hours): - 12/09/17 07:00 12/09/17 08:00 12/09/17 11:30 Temperature 97.5 F L 97.9 F Pulse Rate 76 87 Respiratory Rate 18 16 Blood Pressure 105/49 L 111/69 Pulse Oximetry 95 92 97 12/09/17 13:43 Temperature Pulse Rate 89 Respiratory Rate Blood Pressure 101/59 L Pulse Oximetry Fraction of Inspired Oxygen 21 Oxygen Delivery Method Room Air Oxygen Flow Rate 0 Narrative Exam Narrative: I saw her several times today. Her lungs are clear to auscultation bilaterally. Her heart is regular rate and rhythm without murmur. She has no ankle edema. Objective Labs Result Diagrams: 12/07/17 07:40 12/09/17 05:22 Labs: Laboratory Results - last 24 hr 12/09/17 12/09/17 12/09/17 05:22 12:04 12:04 Sodium 142 Potassium 3.8 Chloride 108 H Carbon Dioxide 26 BUN 37 H Creatinine 0.80 Estimated GFR > 60.0 BUN/Creatinine Ratio 46.3 H Glucose 107 Calcium 8.9 Troponin I 0.062 H B-Natriuretic Peptide 784.0 H Discharge Plan Discharge Plan Patient Disposition: Home Discharge comment: After discussion with cardiology she is cleared for discharge home on medical treatment until she sees Dr. Cohen next week and has further testing for the CHF/Elevated Troponin. Discharge Med Rec/Prescriptions Prescriptions: New hydralazine 10 mg Tablet 10 mg PO Q8HR Qty: 90 RF: 0 aspirin 325 mg Tablet 325 mg PO DAILY Qty: 30 RF: 0 spironolactone 25 mg Tablet 25 mg PO DAILY Qty: 30 RF: 0 carvedilol [Coreg] 3.125 mg Tablet 3.125 mg PO BID Qty: 60 RF: 0 furosemide [Lasix] 40 mg tablet 40 mg PO DAILY Qty: 30 RF: 0 Continue gabapentin 800 mg Tablet 600 mg PO QPM RF: 0 cyclobenzaprine 10 mg Tablet 10 mg PO TID PRN (Reason: Spasms) RF: 0 acetaminophen [Acetaminophen Extra Strength] 500 mg Tablet 1,000 mg PO Q6H PRN (Reason: Pain (Scale Score 1-3)) RF: 0 insulin glargine U-300 conc [Toujeo SoloStar U-300 Insulin] 300 unit/mL (1.5 mL) Insulin Pen 44 unit SUBCUT DAILY RF: 0 Discontinued metoprolol tartrate 25 mg Tablet 25 mg PO BID RF: 0 Follow up/Referrals: Candy Cohen MD [Non-Staff] - 3-5 Days (BAILEE next week. ) Roxanne Guzmán ARNP [Primary Care Provider] - None (Follow up in 1-2 weeks. ) Provider Discharge Instructions Diet: Low-cholesterol Activity: Rest at home until cardiology sees her. Skin/Wound/Dressing Care Report to your healthcare provider any signs of infection, such as:: increased pain Discharge Data Primary Care Provider: Roxanne Guzmán Attending Provider: Michael Santos Admit Date/Time: 12/07/17 05:22 Quality VTE Deep Vein Thrombosis/Pulmonary Embolism Present on Admission: No
--- NOTE | 2017-12-09 15:08 | CM.DPC ---
Addendum entered by Felicitas Yost LPN 12/09/17 15:40: Pt continues very anxious re her d/c plan and transportation. Spoke with her son Brian/Dylan: cell: [phone]. He expresses his apologies for his mother's anxiousness and will do whatever he can to make the d/c home easy. He does say that he the last time she was here visiting his mother she was quite impaired in terms of her stamina and ability to go out of the home. It took her some time to get to her car as she was so short of breath. He states he would very much like to hear a report from the physician as I am aware that her cardiac status is not good but I do not know what her overall prognosis is and I need to help her make plans for the future.. Agreed to alert Dr. Robbins to this/done and he readily agrees to call the son. WILMAN Gonzalez is updated. Did give Brian the names of [employer] [facility] and [employer] [facility] as ideas for a service that would take her home and get her settled into the house. Do to lateness of hour will need to defer rest of that process to DCP team tomorrow and he is aware to call the [id number] line to speak to the DCPlanner assigned to case. Did encourage him to come out to see his mother as soon as possible as she will likely need some assist in her followup appts and she very clearly is overwhelmed and anxious with all that has occured in the last few days. P: home when stable for same.. Consider OT order tomorrow if pt does not d/c. Original Note: DCP: assessment: spoke just now with Dr. Robbins. He reports that he spoke to a newspaper press operator apprentice and pt was ok for d/c to home with outpt followup. He reports she needs transport to [place]. Met with pt. She notes she is surpised at the sudden d/c but she is glad she if ok to go home. She voices concerns: has not been out of bed since she first got the [facility] and then came here and has no idea if she will be ok to move around. PT had not been ordered as pt had not been considered medically stable for this. She also reports she had had a worthy catheter since she admitted to [facility]. She has also had no BM in a few days. This is reported to Dr. Robbins who says he did not know that a worthy catheter was in place. He is now ordering PT evals. Worthy removal and with d/c likely for tomorrow. Pt has just talked with her son Brian/Dylan. He is working on setting up some type of transport service to take pt home....Will obtain his number.
--- NOTE | 2017-12-09 15:24 | PC.NURSE ---
Am shift Care Pt a/o x2-3, forgetful, at times anxious about care. Lungs with faint exp wheeze, faint crackles to bases. Spo2 95% RA. IV lasix given, 2+ edema to BLE. De Dios patent. No nausea. No c/o cp. Updated son, in [place], that Dr Robbins was attempting to reach cellophane casting machine repairer for difinitive plan, and we would be able to update him later with a better plan. Monitor BP, low earlier in shift. Held some cardiac meds with AM med pass.
--- NOTE | 2017-12-09 15:30 | PT.IIE ---
Current Diagnoses Hyperosmolality and hypernatremia (12/07/17) Acute systolic (congestive) heart failure (12/07/17) Heart failure, unspecified (12/07/17) Medical History (Last Reviewed 12/07/17 @ 07:59 by KELLEN Lopez) Coronary artery disease (Chronic) Diabetes mellitus type 2, insulin dependent (Chronic) History of CVA (cerebrovascular accident) without residual deficits (Chronic) History of uric acid staghorn calculus (Chronic) Peripheral neuropathy (Chronic) H/O: hysterectomy (Resolved) Hx of nephrolithotomy with removal of calculi (Resolved) Physical Therapy Inpatient Evaluation/Re-Eval M1 PT/OT-IP Prior Functional Status Start: 12/09/17 17:29 Freq: NEEDED Status: Active Protocol: Document 12/09/17 15:30 AB (Rec: 12/09/17 17:48 AB [id number]) Medical Review Prior Functional Status Medical History Reviewed Yes Communication able to make needs known Mobility and Gait pt stated that she is modified independent with all mobilities and ambulation without AD but occasionally uses SPC indoors depending on fatigue level but uses SPC outdoors at all times. Social History Household Members none Living Arrangements House Number of Floors (Floors) One Floor Number of Stairs To Enter/Railing? 5 steps with L rail ascending Home Environment High Toilet Walk in Shower Home Equipment Straight Cane Hand Held Shower Grab Bars Near Toilet Grab Bars In Shower Employment Status Retired Additional Social History Comment pt able to drive by herself. stated that she calls somebody to do house chores for her if she needs assistance. pt also planning to set up Meals on Wheels. stated that she has a night table next to bed that she uses to assist her with bed mobility. M2 PT-IP Current Condition Start: 12/09/17 17:29 Freq: NEEDED Status: Active Protocol: Document 12/09/17 15:30 AB (Rec: 12/09/17 17:48 AB [id number]) Physical Therapy Current Condition Current Condition Evaluation Date 12/09/17 Treatment Diagnosis CHF Onset Date 12/07/17 Precautions Other Precautions HR M3 PT-IP Subjective Start: 12/09/17 17:29 Freq: NEEDED Status: Active Protocol: Document 12/09/17 15:30 AB (Rec: 12/09/17 17:48 AB [id number]) Subjective Physical Therapy Visit Type Type Initial Evaluation Visit Start Time 15:30 Visit Stop Time 16:25 Total Visit Minutes 55 Number of NURSERY NURSE Visits 0 Physical Therapy Visit Comments Patient Comments i am worried to go home because i don't have a ride Therapy Pain Assessment Pain When Pain Assessed At Rest Pain Present Pain Present Pain Reported Location Bilateral Foot Scale Used pain scale not stated but stated pain from neuropathy M4 PT-IP Mobility and Gait Start: 12/09/17 17:29 Freq: NEEDED Status: Active Protocol: Document 12/09/17 15:30 AB (Rec: 12/09/17 17:48 AB [id number]) PT-Bed Mobility Assessment Supine to Sit Supine to Sit Standby Assistance Bedrails Sit to Supine Sit to Supine Standby Assistance Scooting Scooting to Edge of Bed Standby Assistance PT-Transfer Assessment Sit to and From Stand Sit to and from Stand Standby Assistance Equipment Transfer Assistive Device Gait Belt Straight Cane Gait Assessment Gait Gait Assistance Required: Standby Assistance Contact Guard Assist Distance (Feet) 40 Able to Maintain Weight Bearing Status Yes During Gait Assistive Devices Assistive Device Gait Belt Straight Cane Orthotic/Prosthetic Devices or Brace: No Gait Deviations General Gait Pattern Decreased Stride Length Decreased Feet Clearance Factors Limiting Gait Function Factors Limiting Gait Function Decreased Activity Tolerance Decreased Sensation Decreased Strength Pain Poor Balance Poor Safety Awareness Comments Gait Comments pt with (+) SOB during ambulation O2 sat 94%. Stair Climbing Assessment Evaluation Level of Assist On Stairs Standby Assistance Contact Guard Assistance Devices Stair Climbing Assistive Devices Straight Cane Technique/Endurance Stair Climbing Direction Ascend and Descend Stair Climbing Technique Step to Step Number of Steps Climbed 1 Query Text: Stair Climbing Set # Repetitions (reps) 2 Comments Stair Climbing Comments pt does not want to ambulate towards the stairs/ completed stair combing traing using step stool with L sided handles and pt used SPC on other hand. PT-Balance Assessment Sitting Balance and Reactions Static Sitting Balance Ability Good Dynamic Sitting Balance Ability Good Standing Balance and Reactions Static Standing Balance Ability Fair Dynamic Standing Balance Ability Fair Device Used SPC M5 PT-IP Objective Assessments Start: 12/09/17 17:29 Freq: NEEDED Status: Active Protocol: Document 12/09/17 15:30 AB (Rec: 12/09/17 17:48 AB [id number]) Orientation Orientation/Cognition Level of Alertness Alert Orientation Name Place Situation Safety Awareness Decreased Safety Awareness Memory Description Short Term Impaired Gross Range of Motion Lower Extremity ROM Assessment Within Functional Limits Strength Lower Extremity Strength Assessment Within Functional Limits Sensation Assessment Sensation Gross Sensation Right LE Impaired Left LE Impaired Light Touch Impaired Proprioception (Position) Impaired Sensation Description Numbness Pain M6 PT-IP Treatment Start: 12/09/17 17:29 Freq: NEEDED Status: Active Protocol: Document 12/09/17 15:30 AB (Rec: 12/09/17 17:48 AB [id number]) Physical Therapy Treatment Education Education Provided Safety Other Treatments Other Treatment Performed educated pt regarding energy conservation techniques during mobility and appropriate home set up to decrease increase energy expenditure. pt understood and agreed. M7 PT-IP Assessment and Plan Start: 12/09/17 17:29 Freq: NEEDED Status: Active Protocol: Document 12/09/17 15:30 AB (Rec: 12/09/17 17:48 AB [id number]) PT Summary Assessment and Plan Potential Rehabilitation Potential Fair Status of Condition at Evaluation Evolving Summary Impairments Pain Strength Balance Sensation Cognition Bed Mobility Transfers Gait Activity Tolerance Assessment Summary pt requiring SBA with mobility and CGA with up/down stairs. pt presents with decrease activity tolerance with (+) SOB with short distance ambulation but with 94% O2 sat . pt with CHF affecting endurance. pt plans to go home and will require homehealth services. pt stated that her friend will be able to check on her and assist her if needed but not 24/7. Goals Bed Mobility Goal Independent Transfer Goal Independent Cane Gait Goal Independent Cane Gait Distance 100 Other Goals up/down 6 steps with L rail ascending SBA Days to Meet Goals 5 Frequency of Treatment Frequency Of Treatment Once a Day Treatment Plan Physical Therapy Treatment Plan Bed Mobility Training Transfer Training Gait Training Therapeutic Exercise Balance Retraining Discharge Planning Neuromuscular Re-ed Coordination Retraining Manual Therapy Other Recommendations and Next Treatment ambulation, stair climbing Focus Recommendations To Nursing Amount of Assist Needed 1 Person Assist Discharge Recommendations PT Discharge Recommendations Home with Assistance Home Health Other Discharge Recommendations pt will require homehealth services
[2017-12-09] MEDS: QUETIAPINE 25 MG TABLET 50 MG PO (20:41)
[2017-12-09] MEDS: MELATONIN 3 MG TABLET 6 MG PO (20:43)
[2017-12-09] MEDS: INSULIN GLARGINE 100 UNIT/ML 3ML PEN 10 UNIT SUBCUT (21:39)
--- NOTE | 2017-12-09 21:54 | PC.NURSE ---
Addendum entered by Andra Anguiano R.N. 12/09/17 22:33: pt called at approximately 2230 with complaints of difficulties breathing, I have a hard time catching my breath, it woke me up while I was sleeping. pulse and spO2 WNL, pt appears to be in no acute distress. pt then states she may be a bit anxious and working herself up (per FLIGHT DIRECTOR report, pt had similar episode yesterday evening with c/o SOB caused by anxiety). pt currently resting comfortably. will continue to monitor. Original Note: SHIFT NOTE received pt slightly anxious about recent news to d/c home. airport planner and PT at bedside to assess pt. pt's transportation home only available tomorrow morning. Ox3, slightly forgetful at times (needs reinforcement of fluid restrictions) but pleasant and cooperative. worthy d/c at 1700, pt able to void without difficulties. c/o slight SOB with activity. able to ambulate with 1PA and FWW. denies pain. tele monitoring intact. pt's bedtime blood sugar elevated, HEALTH INFORMATION TECHNICIAN notfied and received order for 10 units lantus. blood sugar to be rechecked at 0140. will communicate to oncoming RN. call light within reach.
[2017-12-10] VITALS (7 sets, daily range): BP systolic 93–111; BP diastolic 52–68; PULSE 78–98; RESP 16–18; TEMP 36.6–36.9; O2SAT 93–97
[2017-12-10] MEDS: ASPIRIN 325 MG TABLET PO (08:47)
[2017-12-10] MEDS: FUROSEMIDE 20 MG/2 ML VIAL IV (08:47)
[2017-12-10] MEDS: GABAPENTIN 600 MG TABLET PO (08:47)
[2017-12-10] MEDS: CARVEDILOL 3.125 MG TABLET PO (08:47)
[2017-12-10] MEDS: SPIRONOLACTONE 25 MG TABLET PO (08:47)
[2017-12-10] MEDS: HEPARIN 5,000 UNIT/ML VIAL 5000 UNIT SUBCUT (08:47)
[2017-12-10] MEDS: SODIUM CHLORIDE 0.9% FLUSH 10 ML IV (08:50)
[2017-12-10] MEDS: INSULIN GLARGINE 100 UNIT/ML 3ML PEN 44 UNIT SUBCUT (08:51)
--- NOTE | 2017-12-10 09:55 | PT.IPTN ---
Current Diagnoses Hyperosmolality and hypernatremia (12/07/17) Acute systolic (congestive) heart failure (12/07/17) Heart failure, unspecified (12/07/17) Physical Therapy Treatment Note M2 PT-IP Current Condition Start: 12/09/17 17:29 Freq: NEEDED Status: Active Protocol: Document 12/09/17 15:30 AB (Rec: 12/09/17 17:48 AB [id number]) Physical Therapy Current Condition Current Condition Evaluation Date 12/09/17 Treatment Diagnosis CHF Onset Date 12/07/17 Precautions Other Precautions HR M3 PT-IP Subjective Start: 12/09/17 17:29 Freq: NEEDED Status: Active Protocol: Document 12/10/17 09:55 AB (Rec: 12/10/17 10:44 AB [id number]) Subjective Physical Therapy Visit Type Type Treatment Note Visit Start Time 09:55 Visit Stop Time 10:16 Total Visit Minutes 21 Number of CUSTOM APPLICATOR Visits 0 Physical Therapy Visit Comments Patient Comments pt requesting to use the toilet Therapy Pain Assessment Pain Present Pain Present Denied Pain M4 PT-IP Mobility and Gait Start: 12/09/17 17:29 Freq: NEEDED Status: Active Protocol: Document 12/10/17 09:55 AB (Rec: 12/10/17 10:44 AB [id number]) PT-Bed Mobility Assessment Supine to Sit Supine to Sit Standby Assistance Sit to Supine Sit to Supine Standby Assistance Scooting Scooting to Edge of Bed Standby Assistance PT-Transfer Assessment Sit to and From Stand Sit to and from Stand Standby Assistance Equipment Transfer Assistive Device Gait Belt Orthotic/Prosthetic Devices or Brace: No Transfers Transfer Destination Toilet Transfer Technique pt ambulated to the toilet using SPC Transfer Ability Level of Assist Standby Assistance Gait Assessment Gait Gait Assistance Required: Standby Assistance Distance (Feet) 12 Able to Maintain Weight Bearing Status Yes During Gait Assistive Devices Assistive Device Gait Belt Straight Cane Orthotic/Prosthetic Devices or Brace: No Factors Limiting Gait Function Factors Limiting Gait Function Decreased Activity Tolerance Poor Balance Poor Safety Awareness Comments Gait Comments pt ambulated to the toilet using SPC. tends to hold on to the wall and table during ambulation and pt stated that that is how she normally does it. pt comopleted toileting SBA and ambulated out of the toilet using SPC SBA. (+) SOB after ambulating of the toilet . pt rested and recovered quickly. Stair Climbing Assessment Evaluation Level of Assist On Stairs Contact Guard Assistance Devices Stair Climbing Assistive Devices Straight Cane Technique/Endurance Stair Climbing Direction Ascend and Descend Stair Climbing Technique Step to Step Number of Steps Climbed 1 Query Text: Stair Climbing Set # Repetitions (reps) 4 Comments Stair Climbing Comments completed up/down step stool with L rail ascending and using SPC on other hand CGA and cues for techniques. ( simulated steps at home as pt refused to get out of her room to do training steps). M5 PT-IP Objective Assessments Start: 12/09/17 17:29 Freq: NEEDED Status: Active Protocol: Document 12/09/17 15:30 AB (Rec: 12/09/17 17:48 AB [id number]) Orientation Orientation/Cognition Level of Alertness Alert Orientation Name Place Situation Safety Awareness Decreased Safety Awareness Memory Description Short Term Impaired Gross Range of Motion Lower Extremity ROM Assessment Within Functional Limits Strength Lower Extremity Strength Assessment Within Functional Limits Sensation Assessment Sensation Gross Sensation Right LE Impaired Left LE Impaired Light Touch Impaired Proprioception (Position) Impaired Sensation Description Numbness Pain M6 PT-IP Treatment Start: 12/09/17 17:29 Freq: NEEDED Status: Active Protocol: Document 12/10/17 09:55 AB (Rec: 12/10/17 10:44 AB [id number]) Physical Therapy Treatment Education Education Provided Safety M7 PT-IP Assessment and Plan Start: 12/09/17 17:29 Freq: NEEDED Status: Active Protocol: Document 12/10/17 09:55 AB (Rec: 12/10/17 10:44 AB [id number]) PT Summary Assessment and Plan Potential Rehabilitation Potential Good Summary Impairments Strength Balance Cognition Bed Mobility Transfers Gait Activity Tolerance Progress Towards Goals Slow Progress due to Activity Tolerance Assessment Summary pt continues to present with decrease activity tolerance with (+) SOB after ambulating out of the toilet. pt has CHF affecting endurance and mobility. pt plans to go home and a friend can assist her but not 06/09. pt will require homehealth PT to improve overall strength and mobility. Goals Bed Mobility Goal Independent Transfer Goal Independent Cane Gait Goal Independent Cane Gait Distance 100 Other Goals up/down 6 steps with L rail ascending SBA Days to Meet Goals 5 Frequency of Treatment Frequency Of Treatment Once a Day Treatment Plan Physical Therapy Treatment Plan Bed Mobility Training Transfer Training Gait Training Therapeutic Exercise Balance Retraining Discharge Planning Neuromuscular Re-ed Coordination Retraining Manual Therapy Other Recommendations and Next Treatment ambulation, stair climbing Focus Recommendations To Nursing Amount of Assist Needed 1 Person Assist Discharge Recommendations PT Discharge Recommendations Home with Assistance Home Health Other Discharge Recommendations pt will require homehealth services
--- NOTE | 2017-12-10 10:12 | PC.NURSE ---
Patient without complaint this morning, denies chest pain, n/v. Tolerating breakfast. Voiding without difficulty. 1 standby assistance with walker to bathroom, patient states she also uses a cane all the time at home. Patient waiting for discharge order (Dr. Caldera) reports he plans to renew order for today. Patient states she has a neighbor that she was able to reach yesterday that is apparently able to pick her up for discharge to home today. Patient plans for follow up with camp housekeeper. Call light within reach, continue to follow.
--- NOTE | 2017-12-10 10:36 | CM.DPC ---
DCP Cont: Spoke with son, Brian, to touch base with status. Patient to be discharged today. Has a neighbor picking her up. Her neighbor lives next door to her, and is able to help her out. Son lives in [place], but is here often, for he works in [place]. Discussed getting patient a life-line, which he has been looking into. Spoke to patient about this, and feels that this would be helpful for her. Gave patient information. Discussed home health with patient, and is questioning if her insurance covers visits. [facility] do not go as far as [place], only option is [facility]. Left a message with them inquiring on turn-around time, as well as insurance. Left another message for Brian to inquire if home health would be advisable. P: Patient is to be discharged home today. Have face to face already signed. Rafia Thomas RN/[facility]
--- NOTE | 2017-12-10 11:00 | CM.DPC ---
DCP Cont: Was able to reach Brian, son. Stated that it would be ok to fax [employer], but not sure if patient would want this right away. Let him know that turn around time was unclear, since they had not returned phone call. P: Patient is to discharge home today. Neighbor will slate picker. Rafia Thomas RN/Shipping/Receiving Clerk
--- NOTE | 2017-12-10 13:57 | PC.NURSE ---
1230 Discharge instructions, home care handouts, CHF education and medications reviewed with patient. Patient states understanding and has no further questions or concerns. States she will take her medications only as prescribed, and will call on Tuesday to schedule a follow up appointment with entry level josé antonio and then her PCP for follow up in next 1-2 weeks. Patient's friend/neighbor picked patient up and will check on her. Home health services arranged per case managment. Patient escorted out via wheelchair by BUSINESS LIBRARIAN with all belongings.
== END 2017-12-10 12:30 | disposition home or self-care (01) | DRG 292 ==
PROVIDERS: Family Medicine; Internal Medicine; Admitting Provider Nurse Practitioner Gerontology; PCP Registered Nurse; Visit Provider Nurse Practitioner Gerontology
DX: I50.21 Acute systolic (congestive) heart failure (principal); E87.0 Hyperosmolality and hypernatremia; I24.8 Other forms of acute ischemic heart disease; I25.10 Atherosclerotic heart disease of native coronary artery without angina pectoris; I10 Essential (primary) hypertension; E11.9 Type 2 diabetes mellitus without complications; Z79.4 Long term (current) use of insulin; I44.7 Left bundle-branch block, unspecified
CPT/HCPCS: 36415; 71045; 80048; 80053; 82962; 83735; 83880; 84484; 85025; 93005; 93010; 93306; 94760; 97116; 97162; 97530; J1644; J1940